=== PATIENT | male | born 1950 | race Caucasian/White ===

== ENCOUNTER → 2019-10-31 09:25 | Outpatient (CLI) | payer MEDICARE, SELFPAY ==
--- NOTE | 2019-10-31 10:00 | MRI_ITS ---
STUDY: MRI ABDOMEN WITHOUT CONTRAST REASON FOR EXAM: Male, 69 years old. PANCREATIC CYST x 2 years, no complaints yearly recheck COMPARISON: Previous MRI of the abdomen obtained on 04/19/2017, from [facility]. TECHNIQUE: MRI of the abdomen was performed utilizing axial in phase and out of phase images through the abdomen followed by 2-D fiesta and T2 weighted axial images of the abdomen followed by axial fat sat T2-weighted images followed by coronal single shot fast spin-echo T2-weighted images and coronal lava images. FINDINGS: 5 small simple cysts are seen within the left hepatic lobe the largest measuring 2 cm in maximal diameter. A small 8 mm simple cyst is seen in the anterior aspect of the right lobe of the liver, with an additional small cyst seen in the lateral aspect of the posterior right lobe of the liver. These simple hepatic cysts were previously identified and are unchanged. The hepatic parenchyma is otherwise normal with no evidence of fatty infiltration of the liver. The spleen is normal. The adrenal glands are normal bilaterally. Careful attention was paid to the head body and tail of pancreas. No obvious cyst are identified in the head body or tail of pancreas. The previously noted 2 tiny cystic structures seen in the body of the pancreas noted on the prior study from [facility] are no longer identified. The visualized kidneys appear to be normal. The abdominal aorta is normal. No evidence of cholelithiasis is seen. MRI/Abdomen without Contrast IMPRESSION: 1. Normal MRI of the abdomen. Currently no pancreatic cystic structures are seen. 2. 5 small simple cyst is seen in the left lobe of the liver and 2 small simple cysts are again seen in the right lobe of the liver which are unchanged. Electronically Signed: Warner Nguyen, at 12:24 EST Tel , Service support ,
== END ==
PROVIDERS: PCP Internal Medicine; Referring Provider Internal Medicine; Visit Provider Internal Medicine
DX: K86.2 Cyst of pancreas (principal)
CPT/HCPCS: 74181